=== PATIENT | male | born 2000 | race Caucasian/White ===

== ENCOUNTER 2023-02-21 21:50 | Emergency (ER) | payer OTHER ==
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
[2023-02-21 22:32] VITALS: BP 132/81; PULSE 118; RESP 20; TEMP 98.6
--- NOTE | 2023-02-21 22:43 | XR ---
EXAM: XR Right Wrist Complete, 3 or More Views CLINICAL HISTORY: ITS.REASON XR Reason: pain TECHNIQUE: Frontal, lateral and oblique views of the right wrist. COMPARISON: No relevant prior studies available. FINDINGS: Bones/joints: Unremarkable. No acute fracture. No dislocation. Soft tissues: Unremarkable. No radiopaque foreign body. IMPRESSION: Normal right wrist x-rays.
--- NOTE | 2023-02-21 22:44 | XR ---
EXAM: XR Right Knee, 3 Views CLINICAL HISTORY: ITS.REASON XR Reason: pain TECHNIQUE: Three views of the right knee. COMPARISON: No relevant prior studies available. FINDINGS: Bones/joints: Unremarkable. No acute fracture. No dislocation. Soft tissues: Unremarkable. IMPRESSION: Normal right knee x-rays.
[2023-02-22] MEDS ORDERED: KETOROLAC 15 MG/ML 1 ML VIAL IM STA (03:20)
== END 2023-02-22 03:48 | disposition home or self-care (01) ==
LOC: EC 21:50
DX: M25.531 Pain in right wrist (principal); M25.561 Pain in right knee; V43.52XA Car driver injured in collision with other type car in traffic accident, initial encounter; Y92.410 Unspecified street and highway as the place of occurrence of the external cause
CPT/HCPCS: 96372; 99284